=== PATIENT | female | born 1960 | race Caucasian/White ===

== ENCOUNTER 2016-12-07 06:26 | Inpatient (IN) ==
[2016-12-07] MEDS ORDERED: Lidocaine -MPF 1% 2 ML VIAL ID ONE (06:47)
[2016-12-07] MEDS ORDERED: Vancomycin 750 MG in D5% in Water 250 ML IVPB ONE ×2 (06:47→19:00)
[2016-12-07] MEDS ORDERED: Albuterol 2.5 MG/3 ML NEBULIZER IH ONE (06:48)
[2016-12-07] MEDS ORDERED: Dexamethasone 4 MG/ML VIAL ONE (07:00)
[2016-12-07] MEDS ORDERED: Lidocaine -MPF 2% 2 ML VIAL ONE ×2 (07:00→08:02)
[2016-12-07] MEDS ORDERED: *HR* Phenylephrine 10 MG/ML VIAL ONE (07:00)
[2016-12-07] MEDS ORDERED: *HR* Rocuronium Bromide 50 MG/5 ML VIAL ONE (07:00)
[2016-12-07] MEDS ORDERED: Ondansetron 4 MG/2 ML VIAL ONE (07:00)
[2016-12-07] MEDS ORDERED: *HR* Midazolam HCl 2 MG/2 ML VIAL ONE (07:01)
[2016-12-07] MEDS ORDERED: *HR* FentaNYL (PF) 100 MCG/2 ML VIAL ONE (07:01)
[2016-12-07] MEDS ORDERED: *HR* Propofol 200 MG/20 ML VIAL IVP ONE (07:01)
[2016-12-07] MEDS ORDERED: *HR* Heparin 5,000 UNIT/ML VIAL ONE (07:01)
[2016-12-07] MEDS ORDERED: Albuterol 2.5 MG/3 ML NEBULIZER ONE (07:11)
--- NOTE | 2016-12-07 07:14 | History & Physical Report ---
Date of Encounter: 12/07/16 Time of Encounter: 07:10 24 Hour HP Update - Instructions Instructions: If the History and Physical is less than 30 days old and was completed prior to A.M. admission and or procedure and has NOT been updated on calendar day of procedure please complete this update prior to performing procedure. - Update Patient reports changes in Medical Condition: No Changes in examination, assessment, or condition: No Changes in Medication: No Preop tests/diagnostics Reviewed: Yes Surgery Remains Indicated: Yes Consent for Planned Operative Procedure(s) Verified: Yes - Pre-Operative Checklist Preoperative Checklist Indicated: Yes Prophylactic Antibiotic Ordered: Yes (Vancomycin due to PCN allergy and MRSA risk) Home Medications Include Beta Marilee: Yes Beta Marilee Taken Today (Day of Surgery): Yes Beta Marilee Taken Yesterday (Day Prior to Surgery): Yes Is VTE Prophylaxis Indicated?: Yes
[2016-12-07] MEDS ORDERED: Vancomycin 1,000 MG VIAL ONE (07:15)
[2016-12-07] MEDS ORDERED: Heparin 1,000 UNITS/500 mL NS 500 ML ONE ×2 (07:15→07:36)
[2016-12-07] MEDS: Ringers Solution, Lactated 1,000 ML IVC SCH ×2 (07:15→13:10)
--- NOTE | 2016-12-07 07:20 | Anesthesia Evaluation PreOp ---
Date of Encounter: 12/07/16 Time of Encounter: 07:17 - Past History Planned Operation: right fem-pop Cardiac History: [place], HTN, Hyperlipidemia, Cardiac Stent (x5), Other (PAD) Pulmonary History: Smoker (last cigarette this morning), Pack/yr (1ppd x 35+ yrs ) DEVELOPMENT EDUCATOR History: Other (has coil in brain aneurysm) Other Medical History: Hepatic (Hep C) Anesthesia History: No Prior Anesthetic Complications, Past Anesthesia ( multiple vascualr procedures) : No Alcohol Use: occasionally Drug use: none Medications and Allergies Alprazolam [Xanax 0.5 MG Tablet] 0.5 mg PO BID PRN 03/29/16 [History] Aspirin 81 mg PO HS 03/29/16 [History] Citalopram Hydrobromide [Celexa] 40 mg PO HS 03/29/16 [History] Lansoprazole [Prevacid] 30 mg PO HS 03/29/16 [History] Meloxicam [Mobic] 15 mg PO HS 03/29/16 [History] Metoprolol [Lopressor] 25 mg PO BID 03/29/16 [History] Simvastatin [Zocor] 40 mg PO HS 03/29/16 [History] Ergocalciferol (VITAMIN D2) [Vitamin D2] 50,000 unit PO FR 11/15/16 [History] Gabapentin [Neurontin] 800 mg PO BID 11/15/16 [History] Acetaminophen [Tylenol] 1,000 mg PO Q6HR 12/07/16 [History] Clopidogrel [Plavix] 75 mg PO HS 12/07/16 [History] Allergies Penicillins [PCN] Allergy (Verified 12/07/16 07:20) Hives Cyclobenzaprine [From Flexeril] Adverse Reaction (Verified 12/07/16 07:20) Drowsy NSAIDS (Non-Steroidal Anti-Inflamma Adverse Reaction (Verified 12/07/16 07:20) Gastrointestinal Upset PATIENT STATES BAD FOR LIVER tramadol [From Ultram] Adverse Reaction (Verified 12/07/16 07:20) See Comments PATIENT STATES BAD FOR LIVER - Meds/Allergy Pre-op Review Medications Reviewed: Yes Allergies Reviewed: Yes Beta Blockers on Current Med List: Yes If Beta Blockers taken, Date/Time (Last Dose taken): last night around midnight Anesthesia Results - Imaging Additional studies: stress test 2016 shows EF 70%, fixed defect inferior and inconclusive for ischemia due to failure to reach targeted heart rate Anesthesia Exam Selected Entries 12/07/16 06:59 Temperature 97.6 F Pulse Rate 46 Respiratory Rate 18 Blood Pressure 115/68 O2 Sat by Pulse Oximetry 98 Weight: 53kg NPO (# of Hours): 8 Pain Scale: 4 Pain Scale Used: Numeric (1 - 10) - HEENT Pupil (Motor): EOMI Mallampati: II Teeth: Edentulous Oral Opening: Greater than 3 - DEVELOPMENT EDUCATOR LOC: Oriented DEVELOPMENT EDUCATOR Motor: Normal RUE, Normal LUE, Normal RLE, Normal LLE, Normal Face DEVELOPMENT EDUCATOR Sensory: Normal: RUE, LUE, RLE, LLE, Face - Cardiac Rhythm: Regular Murmur: None - Pulmonary Breath Sounds: bilateral Clear Respiratory Effort: Symmetrical Anesthesia Assess/Plan ASA Score: 3 Modified Stephen Scale for Level of Consciousness: Cooperative, oriented, and tranquil Anesthetic Plan: General Monitoring Plan: Standard Monitors, A-Line Recovery Plan: PACU (Discussed risks of GA with patient, need for a-line, questions answered and agrees to proceed.)
[2016-12-07] MEDS ORDERED: CeFAZolin Pre 2,000 MG/100 ML 2,000 MG/100 ML BAG ONE (07:29)
[2016-12-07] MEDS ORDERED: Lidocaine -MPF 1% 2 ML VIAL ONE (07:30)
[2016-12-07] MEDS: CeFAZolin Pre 2,000 MG/100 ML 2,000 MG/100 ML BAG IVPB ONE ×2 (07:45→08:50)
--- NOTE | 2016-12-07 09:04 | Anesthesia Procedures ---
Date of Encounter: 12/07/16 Time of Encounter: 07:50 Procedures: Anesthesia - Arterial Line Consent obtained: written consent Time out performed: Yes Sedation: Versed (mg): 2 Sedation: Fentanyl (mcg): 100 Supplemental Oxygen via Nasal Cannula (L/min): 2 Local Anesthetic: Lidocaine 1% Amount of Anesthetic used (mls): 1 Size (Gauge): 20 Length (inches): 1 3/4 Technique Used: sterile prep, guide wire technique, direct puncture technique Post-Procedure: line taped into place, dry sterile dressing placed Patient tolerated procedure: well, no complications Complications: none Site: Radial L Comments: si weak pulses bilaterally in both radial arteries. Attempt on right, able to hit artery x2 with 2 attempts but unable to advance guidewire. Move to left side, access artery after 2 attempts and able to advance guidewire. Catheter placed with good wave form and blood return
[2016-12-07] MEDS ORDERED: *HR* Promethazine 25 MG/ML VIAL IVP PRN (12:00)
[2016-12-07] MEDS ORDERED: Ringers Solution, Lactated 1,000 ML IVC SCH (12:00)
[2016-12-07] MEDS ORDERED: *HR* Meperidine 25 MG/ML SYRINGE IVP PRN (12:00)
[2016-12-07] MEDS: *HR* HYDROmorphone (PF) 1 MG/ML SYRINGE IVP PRN ×3 (12:03→12:13)
--- NOTE | 2016-12-07 12:06 | Operative Note ---
Date of procedure: 12/07/16 Pre-op diagnosis: Peripheral Vascular Disease with Disabling Claudication Post-op diagnosis: same Procedure: 1. Right popliteal artery endartectomy. 2. Right superficial femoral to tibioperoneal trunk artery bypass with reversed right greater saphenous vein. Complications: None Anesthesia: DEVYNA Surgeon: Darius Wang Estimated blood loss (cc): 100 Specimen: Right popliteal artery plaque Condition: stable Disposition: same day Procedure in Detail: Indications: The patient is a 56 year old female who presented to clinic with disabling claudication. She underwent an angiogram and was found to have a left popliteal artery occlusion. Surgery was recommended for symptomatic relief. Procedure: The patient was identified in the preoperative area. The risks, benefits, and alternatives of the procedure were discussed. All questions were answered. The patient was taken to the operating room and placed in supine position on the operating room table. After the induction of general endotracheal anesthesia, she was cleaned and draped in normal sterile fashion. An incision was made on the right medial distal thigh sharply. Hemostasis was obtained with electrocautery. Through a process of blunt, sharp, and electrocautery dissection, the right superficial femoral and above-knee popliteal arteries were dissected proximally and distally and surrounded with vessel loops. The patient received 5000 units of heparin intravenously. Additional heparin was given throughout the case to maintain adequate anticoagulation. The distal superficial femoral and above knee popliteal arteries were occluded and a longitudinal arteriotomy was made in the distal superficial femoral artery and extended sang the proximal popliteal artery. A dense and heavily calcified plaque was encountered. Using a dental freer, an endarterectomy was performed on the popliteal artery. No significant retrograde flow was noted. An incision was then made on the right medial calf sharply. Hemostasis was obtained with electrocautery. Through a process of blunt, sharp, and electrocautery dissection, the right below-knee popliteal artery was dissected proximally and distally and surrounded with vessel loops. The popliteal vessels were occluded and a longitudinal arteriotomy was made in the popliteal artery. Using a dental freer, a retrograde popliteal endarterectomy was performed. The vessel was then flushed from the above knee arteriotomy, however , the flow was not sufficient. A residual plaque could be felt in the midpopliteal artery. The decision was then made to perform a bypass. A longitudinal incision was then made in the right medial thigh. The saphenous vein was identified and dissected distally into the thigh until sufficient length for bypass was obtained. Distally, the vein was mobilized in the calf, clamped, divided, tied off with silk suture ligature and then further completely mobilized through the incisions. The vein was flushed and noted to be adequate in size and consistency for bypass. A tunnel was created between the femoral and popliteal artery incisions. The vein was reversed. Tension was applied to the femoral vessel loops. The vein graft was cut to fit the arteriotomy in the right superficial femoral artery. The graft was anastamosed with a running 6-0 Prolene. After completing the closure, the vessels were reperfused and pulsatile flow was noted through the vein. The vein was marked without torsion and then it was tunneled between the two incisions. After tunneling, the vein was unclamped and was noted to have strong pulsatile flow once again. It was re-clamped. Irrgeular plaq was noted at the popliteal arteriotomy. The arteriotomy was extended distally into the tibioperonal trunk. Additional plaque was excised and the endopoint was inspected. NO elevated flap was noted. The distal end of the graft was then cut to fit the arteriotomy and sutured in place with a running 6-0 Prolene,. The distal arterial anastomosis was completed and prior to completing the closure, the vessels were flushed and reoccluded. Heparinized saline was infused into the lumen. The anastamosis was tied and then flow was restored. Polyphasic signals were noted distal to the distal anastomosis as well as at the posterior tibial artery. Wounds were irrigated with antibiotic-containing saline. Thrombin and gelfoam were used to aid in hemostasis. Platelet rich and platelet poor plasma were infused into the wounds. Meticulous hemostasis was obtained throughout the wound with electrocautery. Wounds were reapproximated with layers of 2-0 and 3-0 Vicryl. Skin was reapproximated with 3-0 Monocryl. Sterile dressing was applied. The patient was extubated and taken to recovery room in stable condition.
[2016-12-07] MEDS: *HR* HYDROmorphone 2 MG/ML SYRINGE ONE ×2 (12:08→13:53)
[2016-12-07] MEDS ORDERED: *HR* Meperidine 25 MG/ML SYRINGE ONE (12:11)
--- NOTE | 2016-12-07 12:25 | Anesthesia Evaluation Post Op ---
Date of Encounter: 12/07/16 Time of Encounter: 12:20 - Vital Signs Vital Signs: Vital Signs/O2 Sat, Most Current Temp Pulse Resp BP Pulse Ox 97.6 F 46 18 115/68 98 12/07/16 06:59 12/07/16 06:59 12/07/16 07:17 12/07/16 07:17 12/07/16 07:17 Vital Signs/O2 Sat/Glucose, Most Recent Temp Pulse Resp BP Pulse Ox 97.6 F 46 18 115/68 98 12/07/16 06:59 12/07/16 06:59 12/07/16 07:17 12/07/16 07:17 12/07/16 07:17 - Lungs Lungs: Clear Ascult./Percussion - Airway Airway: Non-obstructed - Cardiovascular Regular Rate - Mental Status Mental Status: Asleep with brisk response to light stimulation - Pain Pain Scale: 3 Pain Scale used: Numeric (1 - 10) - Nausea Vomiting Nausea Vomiting: Not Present - Hydration Hydration: NPO, Jeff catheter - Discharge PostOp Status: Transfer Patient to floor
[2016-12-07] MEDS ORDERED: Naloxone 0.4 MG/ML INJ IVP PRN (13:14)
[2016-12-07] MEDS ORDERED: Acetaminophen 325 MG TABLET PO PRN (13:14)
[2016-12-07] MEDS ORDERED: Ondansetron 4 MG/2 ML VIAL IVP PRN (13:14)
[2016-12-07] MEDS ORDERED: *HR* Labetalol 20 MG/4 ML SYRINGE IVP PRN (13:14)
[2016-12-07] MEDS ORDERED: *HR* Morphine 2 MG/ML SYRINGE IVP PRN (13:14)
[2016-12-07] MEDS ORDERED: ALPRAZolam 0.5 MG TABLET PO PRN (13:14)
[2016-12-07] MEDS: ceFAZolin 2,000 MG in D5% in Water 100 ML IVPB SCH ×2 (16:02→23:37)
[2016-12-07] MEDS: *HR* OxyCODONE Immed Rel 5 MG TABLET PO PRN ×2 (17:27→23:37)
[2016-12-07] MEDS: *HR* Metoprolol 5 MG/5 ML VIAL IVP SCH ×2 (17:29→23:47)
[2016-12-07] MEDS: Gabapentin 400 MG CAPSULE PO SCH (20:08)
[2016-12-07] MEDS: *HR* HYDROcodone/Acet 5/325 mg TABLET PO PRN (20:10)
[2016-12-07] MEDS ORDERED: Aspirin 81 MG TAB.CHEW PO SCH (21:00)
[2016-12-08] MEDS: *HR* HYDROcodone/Acet 5/325 mg TABLET PO PRN (03:26)
[2016-12-08 03:51] LABS: Hematocrit 19.7 % (35.3-44.9); Hemoglobin 6.1 g/dL (11.5-15.4); Immature Granulocytes % 0.6 % (0-4); Lymphocytes # 1.3 K/mcL (0.6-4.6); Lymphocytes % 11.3 %; Mean Corpuscular Hemoglobin 24.4 pg (28.0-33.3); Mean Corpuscular Volume 78.8 fL (83.0-100.0); Monocytes % 8.4 %; Neutrophils # 9.1 K/mcL (1.6-8.9); Platelet Count 348 K/mcL (140-400); Red Cell Distribution Width 17.2 % (11.5-14.5); Segmented Neutrophils % 79.7 %
[2016-12-08 04:09] LABS: BUN/Creatinine Ratio 14 (6-26); Blood Urea Nitrogen 11 mg/dL (7-20); Carbon Dioxide 24 mEq/L (19-29); Chloride 92 mEq/L (98-109); Glucose 106 mg/dL (70-99); Osmolality,Calculated 252 (280-300); Sodium 121 mEq/L (136-145); eGFR For African Americans > 60 (> 60); eGFR For Non-African Americans > 60 (> 60)
[2016-12-08] MEDS: *HR* Metoprolol 5 MG/5 ML VIAL IVP SCH (05:40)
[2016-12-08] MEDS ORDERED: *HR* Heparin 5,000 UNIT/ML VIAL SQ SCH ×2 (06:00)
--- NOTE | 2016-12-08 06:46 | Discharge Summary ---
Date of Encounter: 12/08/16 Time of Encounter: 07:45 - Discharge Diagnosis (1) Atherosclerosis of [place] arteries of extremities with intermittent claudication, bilateral legs Priority: Primary Status: Chronic Comments: The patient is postoperative day #1 after right popliteal endarterectomy and right superficial femoral to below knee popliteal artery bypass. She reports that her leg is feeling better. Her wounds are healing and her compartments are soft. She has a palpable pedal pulse. She will be discharged today. (2) Chronic anemia Priority: Secondary Status: Chronic Comments: The patient has chronic anemia with acute expected postoperative blood loss anemia. She is hemodynamically stable without evidence of ongoing blood loss. She will receive 1 unit of PRBCs today. (3) Tobacco abuse Priority: Secondary Status: Chronic Comments: She was counseled regarding smoking cessation. (4) Unspecified essential hypertension Priority: Secondary Status: Chronic Comments: She was counseled regarding atherosclerotic risk factor reduction. (5) Mixed hyperlipidemia Priority: Secondary Status: Chronic (6) CAD (coronary artery disease) Priority: Secondary Status: Chronic Qualifiers: Coronary Disease-Associated Artery/Lesion type: [place] artery [place] vs. transplanted heart: [place] heart Associated angina: without angina Qualified Code(s): I25.10 - Atherosclerotic heart disease of [place] coronary artery without angina pectoris - Discharge Medications Prescriptions: OxyCODONE/APAP 5/325 [Percocet 5/325 MG] 1 each PO Q4H PRN #36 tablet PRN Reason: postoperative pain Home Medications: Alprazolam [Xanax 0.5 MG Tablet] 0.5 mg PO BID PRN 03/29/16 [History] Aspirin 81 mg PO HS 03/29/16 [History] Citalopram Hydrobromide [Celexa] 40 mg PO HS 03/29/16 [History] Lansoprazole [Prevacid] 30 mg PO HS 03/29/16 [History] Meloxicam [Mobic] 15 mg PO HS 03/29/16 [History] Metoprolol [Lopressor] 25 mg PO BID 03/29/16 [History] Simvastatin [Zocor] 40 mg PO HS 03/29/16 [History] Ergocalciferol (VITAMIN D2) [Vitamin D2] 50,000 unit PO FR 11/15/16 [History] Gabapentin [Neurontin] 800 mg PO BID 11/15/16 [History] Acetaminophen [Tylenol] 1,000 mg PO Q6HR 12/07/16 [History] Clopidogrel [Plavix] 75 mg PO HS 12/07/16 [History] OxyCODONE/APAP 5/325 [Percocet 5/325 MG] 1 each PO Q4H PRN #36 tablet 12/08/16 [ Rx] Allergies/Adverse Reactions: Allergies Penicillins [PCN] Allergy (Verified 12/07/16 07:20) Hives Cyclobenzaprine [From Flexeril] Adverse Reaction (Verified 12/07/16 07:20) Drowsy NSAIDS (Non-Steroidal Anti-Inflamma Adverse Reaction (Verified 12/07/16 07:20) Gastrointestinal Upset PATIENT STATES BAD FOR LIVER tramadol [From Ultram] Adverse Reaction (Verified 12/07/16 07:20) See Comments PATIENT STATES BAD FOR LIVER Date of admission: 12/07/16 12:56 Primary care physician: Tasha Kelly Procedure(s) Performed: Right superficial femoral to below knee popliteal artery bypass. Discharging clinician: Darius Wang Anticipated date of discharge: 12/08/16 - Patient Status Disposition: Home, Self-Care Condition: Good Functional capacity at discharge: independent ambulation Overall status at discharge: patient is back to baseline - Discharge Instructions Instructions: Oxycodone/Acetaminophen (By mouth), Peripheral Vascular Disorders (DC) Follow Up With: Darius Wang MD [Partnered Physician] - 01/17/17 1:10 pm Tasha Kelly MD [Primary Care Provider] - 12/15/16 2:00 pm () Additional Instructions: MAY REMOVE BANDAGE AND SHOWER ON 12/09/16. WASH WOUNDS GENTLY AND PAT TO DRY. APPLY DRY GAUZE DAILY FOR 7 DAYS. NO TUB BATHS OR SWIMMING UNTIL 12/20. CALL DR. WANG AT [phone] WITH QUESTIONS OR CONCERNS. - Diet and Activity Activity: increase activity as tolerated Diet: advance to your usual diet - Hospital Course Hospital course: Ms. Pride is a 56 year old female with a history of peripheral vascular disease with disabling claudication. She was admitted on 12/07/16 and underwent a right lower extremity bypass. She tolerated the procedure well. She has chronic anemia and her hemoglobin fell below 7.0 on postoeprative day #1. She was hemodynamically stable. She recieved 1 unit of PRBCs. She was then discharged in stable condition without complications. Time spent discussing smoking cessation with patient: 3 to 10 minutes - Time Spent with Patient Total time spent providing and/or coordinating discharge services: Exam Vital Signs, Last 4 Hours Temp Pulse Resp BP Pulse Ox 12/08/16 04:38 99.5 F 52 16 113/56 96 12/08/16 03:20 57 General: Present: Conversant, No Apparent Distress Cardiac: Present: Reg Rate and Rhythm Lungs: Present: Normal Breath Sounds Neuro: Present: Alert and responsive, No focal deficits noted, Motor nerves grossly intact, Sensory nerves grossly intact Abdomen: Present: Soft Vascular: Present: Normal capillary refill, Pulse, normal, Surgical incisions ( clean, dry and intact without hematoma) Skin: Present: No rashes noted on visualized skin - VTE Documentation of Mechanical Device: Intermittent pneumatic compression device
[2016-12-08] MEDS: Gabapentin 400 MG CAPSULE PO SCH (07:52)
[2016-12-08] MEDS: *HR* OxyCODONE Immed Rel 5 MG TABLET PO PRN (08:00)
[2016-12-08] MEDS ORDERED: 0.9 % Sodium Chloride 250 ML ONE (08:53)
[2016-12-08 12:14] VITALS: BP 124/85
== END 2016-12-08 15:03 | disposition home or self-care (01) | DRG 181 ==
LOC: SAMDAY 06:26 → 2NNU 12:56
PROVIDERS: ADMIT Surgery; ATTEND Surgery